=== PATIENT | male | born 1955 | race Caucasian/White ===

== ENCOUNTER → 2018-02-17 07:33 | Outpatient (CLI) | payer OTHER, SELFPAY ==
[2018-02-17 07:38] LABS: Bacteria Urine None Seen; RBC Urine None Seen (0-5/HPF); WBC Urine None Seen (0-5/HPF)
[2018-02-17 08:15] LABS: Hematocrit 42.5 % (41-53); Hemoglobin 14.6 g/dL (13.5-17.5); Mean Corpuscular HGB Conc 34.3 % (30-36); Mean Corpuscular Hemoglobin 31.1 PG (26-34); Mean Corpuscular Volume 90.6 fL (80-100); Platelet Count 238 X10^3/uL (150-400); Red Blood Cell Count 4.69 X10^6/uL (4.5-5.9); Red Cell Distribution Width 12.7 % (11.6-14.8); White Blood Cell Count 6.9 X10^3/uL (4.5-11.0)
[2018-02-17 08:19] LABS: Appearance Urine UA CLEAR; Bilirubin Urine UA NEGATIVE (NEGATIVE); Color Urine UA YELLOW; Glucose Urine UA NEGATIVE (Normal); Ketones Urine UA NEGATIVE (NEGATIVE); Leukocyte Esterase Urine UA NEGATIVE (NEGATIVE); Nitrite Urine UA NEGATIVE (Negative); Occult Blood Urine UA NEGATIVE (Negative); Protein Urine UA NEGATIVE (Negative); Urobilinogen Urine UA 0.2 E.U./dL (0.2)
[2018-02-17 08:30] LABS: Culture Indicated Urine Cult Not Indicated; Urine Comments Microscopic Normal
[2018-02-17 08:38] LABS: Alanine Aminotransferase 32 IU/L (21-72); Albumin 4.6 g/dL (3.5-5.0); Albumin Globulin Ratio 1.4 (1.0-2.8); Alkaline Phosphatase 69 U/L (38-126); Aspartate Aminotransferase 26 IU/L (17-59); Bilirubin Total 0.6 mg/dL (0.2-1.3); Blood Urea Nitrogen 14 mg/dL (9-20); Calcium 8.9 mg/dL (8.4-10.2); Carbon Dioxide 26 mmol/L (22-32); Chloride 104 mmol/L (98-107); Cholesterol 208 mg/dL (140-199); Estimated Glomerular Filt Rate > 60.0 mL/min (>60); Globulin 3.3 g/dL (1.7-4.1); Glucose 103 mg/dL (80-110); HDL Cholesterol 56 mg/dL (40-60); HEMOLYSIS < 15 (0-50); LDL Cholesterol Calculated 132 mg/dL (<100); Sodium 144 mmol/L (137-145); Total Protein 7.9 g/dL (6.3-8.2); Triglycerides 102 mg/dL (35-150)
[2018-02-17 09:14] LABS: Thyroid Stimulating Hormone 5.22 uIU/mL (0.47-4.68)
== END ==
PROVIDERS: PCP Physician Assistant; Visit Provider Family Medicine
DX: Z51.81 Encounter for therapeutic drug level monitoring (principal)
CPT/HCPCS: 36415; 80053; 80061; 81001; 84443; 85027; G0103

== ENCOUNTER → 2018-06-20 08:39 | Outpatient (CLI) | payer OTHER, SELFPAY ==
--- NOTE | 2018-06-20 08:40 | DI.US.S_ITS ---
PROCEDURE: US ABD AORTA ANEURYSM SCREEN INDICATIONS: AAA screen in male former smoker TECHNIQUE: Real time scanning was performed of the aorta and iliac arteries, with image documentation. COMPARISON: None. FINDINGS: Aorta: Proximal aortic diameter measures 2.7 cm. Mid-aorta measures 2.0 cm. Distal aortic diameter is 1.9 cm. Iliac arteries: Right common iliac artery measures 1.5 cm. Left common iliac artery measures 1.3 cm. IMPRESSION: Negative screening study for abdominal aortic aneurysm. Dictated by: Cristino Steinberg M.D. on 06/20/2018 at 9:19 Approved by: Cristino Steinberg M.D. on 06/20/2018 at 9:21
== END ==
PROVIDERS: PCP Physician Assistant; Visit Provider Student in an Organized Health Care Education/Training Program
DX: Z13.6 Encounter for screening for cardiovascular disorders (principal); Z87.891 Personal history of nicotine dependence
CPT/HCPCS: 76706

== ENCOUNTER 2018-07-08 10:37 | Emergency (ER) | payer OTHER, SELFPAY ==
[2018-07-08 10:40] VITALS: BP 141/91; PULSE 83; RESP 16; TEMP 36.2; O2SAT 96
--- NOTE | 2018-07-08 11:18 | DI.CT.S_ITS ---
PROCEDURE: CT CERVICAL SPINE WO CON INDICATIONS: injury at work, pain, numbness in left pinky TECHNIQUE: Noncontrast 3 mm thick sections acquired from the skull base to the T4 level. Sagittal and coronal reformats were then constructed. For radiation dose reduction, the following was used: automated exposure control, adjustment of mA and/or kV according to patient size. COMPARISON: None. FINDINGS: Image quality: Excellent. Bones: No fractures or dislocations. There is severe degenerative disc disease at C3-C4, C4-C5, C5-C6 and C6-C7. There is bilateral facet arthropathy scattered in the cervical spine, most pronounced at C2-C3 and C7-T1 on the right and C2-C3 and C3-C4 on the left. Visualized superior ribs are intact. Old right clavicular fracture is noted. Soft tissues: Prevertebral soft tissues are normal in thickness. No paravertebral hematomas. No apical pneumothoraces. IMPRESSION: 1. No fracture or dislocation. 2. Degenerative disc and facet disease in cervical spine as described. 3. Old right clavicular fracture. Dictated by: Theodore Castrejon M.D. on 07/08/2018 at 11:56 Approved by: Theodore Castrejon M.D. on 07/08/2018 at 12:06
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
[2018-07-08 12:29] VITALS: BP 144/84; PULSE 70; RESP 16; TEMP 36.5; O2SAT 98
== END 2018-07-08 13:08 | disposition home or self-care (01) ==
PROVIDERS: Emergency Provider Emergency Medicine; PCP Student in an Organized Health Care Education/Training Program
DX: S16.1XXA Strain of muscle, fascia and tendon at neck level, initial encounter (principal)
CPT/HCPCS: 72125; 99282; 99284

== ENCOUNTER → 2018-12-06 11:26 | Outpatient (CLI) | payer OTHER, SELFPAY ==
--- NOTE | 2018-12-06 11:33 | DI.RAD.S_ITS ---
PROCEDURE: XR WRIST LT MIN 3V INDICATIONS: Left wrist pain TECHNIQUE: 4 views of the wrist were acquired. COMPARISON: None. FINDINGS: Bones: No acute fractures or dislocations. There is mild to moderate degeneration at the 1st carpometacarpal joint. No suspicious bony lesions. Scaphoid view: The scaphoid appears intact. Soft tissues: There is a corticated ossicle measuring approximately 6 mm adjacent to the radial aspect of the trapezium which may represent sequela of a prior avulsion injury. No suspicious soft tissue calcifications. IMPRESSION: 1. No acute fracture or dislocation. 2. Mild to moderate degeneration at the 1st carpometacarpal joint. 2. Small ossicle adjacent to the trapezium is nonspecific and may represent sequela from a prior avulsion injury. Dictated by: Crow Power M.D. on 12/06/2018 at 11:45 Approved by: Crow Power M.D. on 12/06/2018 at 11:56
== END ==
PROVIDERS: PCP Student in an Organized Health Care Education/Training Program; Visit Provider Physician Assistant
DX: M25.532 Pain in left wrist (principal)
CPT/HCPCS: 73110

== ENCOUNTER → 2018-12-28 10:17 | Outpatient (CLI) | payer OTHER, SELFPAY ==
--- NOTE | 2018-12-28 10:26 | DI.RAD.S_ITS ---
PROCEDURE: XR HIP W PEL IF DONE LT MIN 4V INDICATIONS: Psoriatic arthritis TECHNIQUE: AP pelvis with lateral view(s) of the bilateral hip(s). COMPARISON: None. FINDINGS: Bones: No fractures or dislocations. Pelvic ring appears intact. No suspicious bony lesions. Osteophytic changes in bilateral hip joints are seen with joint space narrowing and subchondral sclerosis. Bilateral sacroiliac joints are preserved. Soft tissues: The visualized bowel gas pattern is normal. No suspicious soft tissue calcifications. IMPRESSION: Bilateral hip joint osteoarthritis. No fracture or dislocation. No evidence of avascular necrosis. Dictated by: John Car M.D. on 12/28/2018 at 12:00 Approved by: John Car M.D. on 12/28/2018 at 12:01
--- NOTE | 2018-12-28 10:26 | DI.RAD.S_ITS ---
PROCEDURE: XR HAND RT MIN 3V INDICATIONS: History of fracture psoriatic arthritis TECHNIQUE: 3 views of the hand(s) acquired. COMPARISON: None. FINDINGS: Bones: No fractures or dislocations. Carpal bones are normally aligned. No suspicious bony lesions. Osteoarthritic changes along radial aspect of right wrist are seen more prominent involving first CMC joint. Mild osteoarthritic changes throughout interphalangeal joints are seen. Soft tissues: No suspicious soft tissue calcifications. IMPRESSION: Osteoarthritic changes in right wrist and hand as above. No bony erosive changes. No fracture or dislocation. Dictated by: John Car M.D. on 12/28/2018 at 11:55 Approved by: John Car M.D. on 12/28/2018 at 11:56
--- NOTE | 2018-12-28 10:26 | DI.RAD.S_ITS ---
PROCEDURE: XR FOOT RT MIN 3V INDICATIONS: History of fracture psoriatic arthritis TECHNIQUE: 3 views of the foot were acquired. COMPARISON: None. FINDINGS: Bones: Surgical screw at is seen in the first and second TMT joints traversing along the expected course of Lisfranc ligament is seen. There is complete bony fusion of first and second TMT joints as well as third TMT joint. No acute fracture or dislocation is seen. Osteoarthritic changes are noted at fourth and fifth PIP joints as well as forefoot joints. No fractures or dislocations. No suspicious bony lesions. Soft tissues: No tibiotalar joint effusion. Achilles tendon appears normal. IMPRESSION: Bony fusion of first through third TMT joints. Osteoarthritic changes are visualized right foot. No gross acute fracture or dislocation. Dictated by: John Car M.D. on 12/28/2018 at 12:01 Approved by: John Car M.D. on 12/28/2018 at 12:03
[2018-12-28 12:17] LABS: C-Reactive Protein Quant 1.3 mg/dL (<1.0)
[2018-12-28 12:19] LABS: Rheumatoid Factor 90.6 IU/mL (<12.0)
[2018-12-28 13:39] LABS: Erythrocyte Sedimentation Rate 45 MM/HR (0-15)
[2019-01-04 12:22] LABS: ANA Screen, IFA NEGATIVE (NEGATIVE)
== END ==
LOC: LAB 10:28 → RAD 10:28
PROVIDERS: PCP Student in an Organized Health Care Education/Training Program; Visit Provider Physical Medicine & Rehabilitation
DX: L40.50 Arthropathic psoriasis, unspecified (principal); M16.0 Bilateral primary osteoarthritis of hip; M19.041 Primary osteoarthritis, right hand; M10.9 Gout, unspecified; M25.50 Pain in unspecified joint; M24.674 Ankylosis, right foot; Z87.81 Personal history of (healed) traumatic fracture
CPT/HCPCS: 36415; 73130; 73522; 73630; 85651; 86038; 86140; 86430

== ENCOUNTER → 2020-11-27 13:42 | Outpatient (CLI) | payer OTHER, SELFPAY ==
--- NOTE | 2020-11-27 13:44 | DI.RAD.S_ITS ---
PROCEDURE: XR WRIST RT MIN 3V INDICATIONS: right wrist trauma, pain, swelling TECHNIQUE: 4 views of the wrist were acquired. COMPARISON: [facility], RG, WRIST COMP MIN 3VW (RT), 07/18/2019, 9:13. FINDINGS: Bones: No fractures or dislocations. No suspicious bony lesions. Mild 1st CMC joint, triscaphe joint and radiocarpal joint osteoarthritis. Scaphoid view: Scaphoid is intact. Soft tissues: No suspicious soft tissue calcifications. IMPRESSION: No fracture. No acute osseous lesion. If symptoms and/or clinical suspicion for pathology persists, further assessment with repeat radiographs (7-10 days) or advanced imaging (e.g. CT, MRI or bone scan) should be considered. Dictated by: Tiana Hayward MD, PhD on 11/27/2020 at 14:07 Approved by: Tiana Hayward MD, PhD on 11/27/2020 at 14:08
== END ==
PROVIDERS: PCP Student in an Organized Health Care Education/Training Program; Referring Provider Student in an Organized Health Care Education/Training Program; Visit Provider Student in an Organized Health Care Education/Training Program
DX: S66.911A Strain of unspecified muscle, fascia and tendon at wrist and hand level, right hand, initial encounter (principal); S69.91XA Unspecified injury of right wrist, hand and finger(s), initial encounter; Y99.0 Civilian activity done for income or pay; X58.XXXA Exposure to other specified factors, initial encounter
CPT/HCPCS: 73110

== ENCOUNTER → 2020-12-04 14:44 | Outpatient (CLI) | payer OTHER, SELFPAY ==
[2020-12-04 15:40] LABS: Add Manual Diff / Slide Review NO; Basophils Absolute Auto 0 /uL (0-100); Basophils Percent Auto 0.3 % (0-2); Eosinophils Absolute Auto 0 /uL (0-450); Eosinophils Percent Auto 0.2 % (2-4); Hematocrit 40.4 % (41-53); Hemoglobin 13.5 g/dL (13.5-17.5); Lymphocytes Absolute Auto 800 /uL (1100-4500); Lymphocytes Percent Auto 8.4 % (25-40); Mean Corpuscular HGB Conc 33.4 % (30-36); Mean Corpuscular Hemoglobin 31.7 PG (26-34); Mean Corpuscular Volume 94.8 fL (80-100); Monocytes Absolute Auto 700 /uL (0-900); Monocytes Percent Auto 6.7 % (3-14); Neutrophils Absolute Auto 8400 /uL (1500-7000); Neutrophils Percent Auto 84.4 % (50-75); Platelet Count 254 X10^3/uL (150-400); Red Blood Cell Count 4.26 X10^6/uL (4.5-5.9); Red Cell Distribution Width 13.4 % (11.6-14.8)
[2020-12-04 15:54] LABS: Erythrocyte Sedimentation Rate 16 MM/HR (0-15)
[2020-12-04 16:11] LABS: Alanine Aminotransferase 29 IU/L (<50); Albumin 4.3 g/dL (3.5-5.0); Albumin Globulin Ratio 1.4 (1.0-2.8); Alkaline Phosphatase 74 U/L (38-126); Aspartate Aminotransferase 31 IU/L (17-59); BUN Creatinine Ratio 26.7 (6-22); Bilirubin Total 0.5 mg/dL (0.2-1.3); Blood Urea Nitrogen 23 mg/dL (9-20); Calcium 9.3 mg/dL (8.4-10.2); Carbon Dioxide 22 mmol/L (22-32); Chloride 107 mmol/L (98-107); Estimated Glomerular Filt Rate > 60.0 mL/min (>60); Globulin 3.1 g/dL (1.7-4.1); Glucose 130 mg/dL (80-110); HEMOLYSIS < 15 (0-50); Potassium 4.6 mmol/L (3.4-5.1); Sodium 138 mmol/L (137-145); Total Protein 7.4 g/dL (6.3-8.2)
== END ==
PROVIDERS: PCP Student in an Organized Health Care Education/Training Program; Referring Provider Internal Medicine Rheumatology; Visit Provider Internal Medicine Rheumatology
DX: M05.79 Rheumatoid arthritis with rheumatoid factor of multiple sites without organ or systems involvement (principal)
CPT/HCPCS: 36415; 80053; 85025; 85651

== ENCOUNTER → 2021-01-15 10:41 | Outpatient (CLI) | payer OTHER, SELFPAY | PROVIDERS: PCP Student in an Organized Health Care Education/Training Program; Referring Provider Student in an Organized Health Care Education/Training Program; Visit Provider Student in an Organized Health Care Education/Training Program | DX: Z12.5 Encounter for screening for malignant neoplasm of prostate (principal) | CPT/HCPCS: 36415; G0103 ==

== ENCOUNTER → 2021-05-19 11:33 | Outpatient (CLI) | payer OTHER, SELFPAY ==
--- NOTE | 2021-05-19 11:34 | DI.RAD.S_ITS ---
PROCEDURE: XR WRIST LT MIN 3V INDICATIONS: Left wrist mass TECHNIQUE: 4 views of the wrist were acquired. COMPARISON: [facility], CR, XR WRIST RT MIN 3V, 11/27/2020, 13:50. [facility], CR, XR WRIST LT MIN 3V, 12/06/2018, 11:29. FINDINGS: Bones: There are degenerative changes of the 1st carpometacarpal joint, the triscaphe joint, and the articulation between the triquetrum and lunate. Scaphoid view: No acute abnormality. No fracture. Soft tissues: No suspicious soft tissue calcifications. IMPRESSION: Degenerative changes of the carpal bones. No acute abnormality. Dictated by: Vince Conway M.D. on 05/19/2021 at 12:12 Approved by: Vince Conway M.D. on 05/19/2021 at 12:22
== END ==
PROVIDERS: PCP Student in an Organized Health Care Education/Training Program; Referring Provider Student in an Organized Health Care Education/Training Program; Visit Provider Student in an Organized Health Care Education/Training Program
DX: R22.32 Localized swelling, mass and lump, left upper limb (principal)
CPT/HCPCS: 73110